=== PATIENT | female | born 1975 | race Caucasian/White ===

== ENCOUNTER 2018-09-02 13:01 | Emergency (ER) | payer OTHER ==
[~2018-09-02] VITALS: Ht 162.6 cm; Wt 54.9 kg
[~2018-09-02 13:01] MED LIST: ABILIFY 2 MG2 M1 PO; AMBIEN 5 MG TABL5 M1 PO; AMBIEN CR12.5 MG PO; ATIVAN1 MG PO; BUTALB-APAP-CA1 EACH PO; COENZYME Q1060 MG PO; CYPROHEPTADINE 44 MG PO; DESYREL100 MG PO; DILAUDID1 MG/1 ML IVPUSH; ENOXAPARIN40 MG/0.1 SUBQ; ERYTHROMYCIN250 M1 PO; ERYTHROMYCIN250 MG PO; FIORICET 50-321 EACH PO; HOME MEDICATION PO; HYDROCHLOROTHIA25 M1 PO; HYDROXYZINE HCL25 M1 PO; HYDROXYZINE PAM50 MG PO; IBUPROFEN 200200 M1 PO; IBUPROFEN 600600 M1 PO; KEFLEX500 MG PO; KEPPRA 500 MG500 M1 IV; LAMICTAL XR100 MG PO; LAMICTAL100 MG PO; LUNESTA3 MG PO; LYRICA200 MG PO; MIRTAZAPINE45 MG PO; NEURONTIN 400400 M1 PO; NEURONTIN600 MG PO; ONDANSETRON HCL4 M2 PO; POTASSIUM20 PO; PRENATAL PO; PROPRANOLOL 1010 M1 PO; PROTONIX40 M1 PO; PROTONIX40 M2 PO; RESTORIL30 MG PO; SUMATRIPTAN SUC50 MG PO; TOPAMAX 100 MG100 MG PO; TOPAMAX100 MG PO; TOPAMAX50 MG PO; TOPROL XL25 MG PO; TRANSDERM-SCO1 PATC1 TD; TREXIMET 10-601 EACH PO; TYLENOL325 MG PO; VITAMIN B-1100 M1 PO; VITAMIN B-1100 MG PO; XANAX XR1 MG PO; ZANAFLEX4 M1 PO; ZANTAC150 M2 PO; ZEMBRACE S3 MG/0.5 M SQ; ZOFRAN ODT4 MG PO; ZOFRAN4 MG PO; ZOLOFT100 MG PO; ZYPREXA 10 MG T10 MG PO; [UNRECOGNIZED DRUG - OTHER] PO; [UNRECOGNIZED DRUG - OTHER] PO
[2018-09-02 14:53] LABS: HEMATOCRIT 37.2 % (37.0-47.0); HEMOGLOBIN 11.7 gm/dL (12.0-15.0); MCHC 31.6 g/dL (28.0-37.0); MCV 79.2 fL (80.0-100.0); MPV 7.8 fl. (7.2-11.1); NUCLEATED RBCS 0 /100WBC; PLATELET COUNT* 360 thou/uL (150-400); RDW-CV 19.7 % (10.5-14.5); WBC 10.1 thou/uL (4.0-11.0)
[2018-09-02 15:01] LABS: ANION GAP 11 mmol/L (7-16); BUN 8 mg/dL (7-18); CALCIUM 7.8 mg/dL (8.5-10.1); CHLORIDE 102 mmol/L (98-107); CO2 27 mmol/L (21-32); CREATININE 0.7 mg/dL (0.6-1.3); GLUCOSE 146 mg/dL (70-99); POTASSIUM 3.8 mmol/L (3.5-5.1); SODIUM 140 mmol/L (136-145)
[2018-09-02 15:11] LABS: ALBUMIN 3.5 g/dL (3.4-5.0); ALKALINE PHOSPHATASE 91 U/L (46-116); LIPASE 52 U/L (73-393); SGOT 25 U/L (15-37); SGPT 31 U/L (30-65); TOTAL BILIRUBIN 0.2 mg/dL (<0.1-1.0); TOTAL PROTEIN 7.1 g/dL (6.4-8.2); TROPONIN-I LEVEL <0.06 ng/mL (<0.06)
[2018-09-02 15:27] LABS: ABSOLUTE LYMPHOCYTES 0.9 thou/uL (0.8-5.3); ABSOLUTE MONOCYTES 0.3 thou/uL (0.0-1.2); ABSOLUTE NEUTROPHILS 8.9 thou/uL (1.6-8.1)
[2018-09-02 15:28] LABS: ANISOCYTOSIS 1+; PLATELET ESTIMATE ADEQUATE
[2018-09-02 15:29] LABS: MICROCYTES Occasional
[2018-09-02 15:54] LABS: URINE BILIRUBIN NEGATIVE (Negative); URINE BLOOD NEGATIVE (Negative); URINE CLARITY CLEAR; URINE COLOR YELLOW; URINE GLUCOSE-RANDOM NEGATIVE (Negative); URINE KETONES NEGATIVE (Negative); URINE LEUKOCYTES-REFLEX NEGATIVE (Negative); URINE NITRITE-REFLEX NEGATIVE (Negative); URINE PROTEIN 1+ (Negative); URINE SPECIFIC GRAVITY >= 1.030 (1.005-1.030); URINE UROBILINOGEN 0.2 E.U./dl (0.2-1.0)
[2018-09-02 16:05] LABS: AMP/METHAMP Negative (Negative); BARBITURATES Negative (Negative); BENZODIAZEPINES Negative (Negative); COCAINE Negative (Negative); METHADONE Negative (Negative); OPIATES Negative (Negative); PCP Negative (Negative); THC POSITIVE (Negative)
[2018-09-02] MEDS ORDERED: OMEPRAZOLE40 MG PO (17:12)
[2018-09-02] MEDS ORDERED: ONDANSETRON HCL4 M2 PO (17:12)
[2018-09-02] MEDS ORDERED: CARAFATE1 GM/10 ML PO (17:12)
[2018-09-02 17:39] VITALS: BP 164/96
--- NOTE | 2018-09-03 16:07 | EKG ---
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1975 Requested By: Mary Rosales Order Number: [id number] MD: Terry Leal Measurements Intervals [place] Rate: 77 P: -13 OK: 115 QRS: 52 QRSD: 72 T: 37 QT: 393 QTc: 445 Interpretive Statements Sinus rhythm Atrial premature complex Borderline short OK interval Compared to ECG 11/22/2016 13:41:27 Atrial premature complex(es) now present Electronically Signed On 09-03-2018 16:07:28 CDT by Terry Leal [email or web address] <ELECTRONICALLY SIGNED> By: Terry Leal MD, [facility] 09/03/18 1607 1528 1528 Terry Leal MD, FACC /EPI
== END 2018-09-02 17:42 | disposition home or self-care (01) ==
LOC: M.ERS 13:01
PROVIDERS: Nurse Practitioner Family
DX: K29.70 Gastritis, unspecified, without bleeding (principal); R51 Headache; G89.29 Other chronic pain; F32.9 Major depressive disorder, single episode, unspecified; G40.909 Epilepsy, unspecified, not intractable, without status epilepticus; K21.9 Gastro-esophageal reflux disease without esophagitis; Z90.49 Acquired absence of other specified parts of digestive tract; Z90.89 Acquired absence of other organs; Z98.51 Tubal ligation status; Z90.710 Acquired absence of both cervix and uterus; Z79.899 Other long term (current) drug therapy; Z88.8 Allergy status to other drugs, medicaments and biological substances; Z91.018 Allergy to other foods; Z91.040 Latex allergy status; Z88.6 Allergy status to analgesic agent

== ENCOUNTER 2018-09-25 17:51 | Inpatient (IN) | payer OTHER, MEDICARE ==
[~2018-09-25] VITALS: Ht 165.1 cm; Wt 62.1 kg
[2018-09-25] VITALS (7 sets, daily range): BP systolic 116–165; BP diastolic 69–101
--- NOTE | ~2018-09-25 | CON ---
[address] [address] CONSULTATION Name: PATRICE GONZÁLES Room: [address] IN [facility].#: [id number] Admission: 09/25/18 Attend Phys: Juliana Luu Discharge: Date of : 71 Report #: [id number] THIS REPORT FOR: //name// CC: FAM unknown Herbert Celeste HISTORY OF PRESENT ILLNESS: The patient is a 43-year-old woman who was admitted from the Emergency Department on 09/25/2018, after an apparent suicide attempt. The patient is under the care of Dr. Lee, a psychiatrist at [facility] and had received ECT treatments the previous week. The patient stated that she was told by her that he filed for divorce and she became distraught and took Topamax, Lamictal and gabapentin medications in a suicide gesture. The patient is under the care of Dr. Glass for seizure disorder. Prior to that, she had been under the care of Dr. Moon. Her seizures began in 2007 and were resistant to medications. The patient had a vagal nerve stimulator placed in 10/2016. She had been evaluated at [facility] by Dr. Hernandes, records are not available; however, the patient was very unhappy with Dr. Hernandes and the impression was that he did not feel that her seizures were organic. The patient was admitted. She was treated for hypokalemia. Serotonin syndrome was ruled out. The patient has been seen by Psychiatry and it is recommended that she have psych admission. EEG is ordered. PAST MEDICAL AND SURGICAL HISTORY: Positive for history of alcohol abuse, abdominal surgery for ulcers, thoracotomy after pneumonia, gallbladder surgery, appendectomy, jaw surgery, breast augmentation and overdose in 2006 as well as a vagal nerve stimulator. MEDICATIONS: Include topiramate 100 mg b.i.d., lamotrigine 100 mg b.i.d., lorazepam 1 mg p.r.n., zolpidem 12.5 mg at bedtime and sumatriptan for headaches. She is also on sertraline, which was discontinued. FAMILY HISTORY: Positive for alcoholism and drug addiction SOCIAL HISTORY: The patient does not use tobacco but does drink beer. REVIEW OF SYSTEMS: The patient on review of systems is complaining of headaches. She is very depressed and frequently cries during the interview. NEUROLOGIC EXAMINATION: Neck is supple. The patient is alert and oriented with normal memory and speech. She did have a spell, which she repeated the same word 10 or 12 times while she was crying. At other times, she did have a to and [place] [address] CONSULTATION Name: PATRICE GONZÁLES Room: [address] [place] ..#: [id number] Admission: 09/25/18 Attend Phys: Juliana Luu Discharge: Date of : 71 Report #: [id number] On cranial nerve testing, the pupils were dilated but constricted vigorously to light. The patient had an unusual response to eye movement testing. She moved her eyes to the right when I moved to her right and moved her eyes to the left when I walked around the bed to her left side, but would not voluntarily move the eyes and following my finger. Likewise, vertical gaze was affected, but increased with encouragement. She did converge well. Facial sensation and mobility normal. Tongue normal. Motor testing revealed full power in her arms and legs. There was no drift. Sensory testing was intact to pin and vibration. Coordination testing was done well with [id number]. Her reflexes were diminished throughout, but equal. The toes were downgoing. Gait was not tested. IMAGING: A CT scan of the head was normal. The patient does have a vagal nerve stimulator. She could have an MRI scan if the device was turned off, but I do not feel need for an MRI at this time. 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 The observed activity that had been noted by Nursing was that when she had a seizure, her eyes were open which would be accounted for by seizure, but ___ her right arm would move but there was no tonic or clonic activity and the head had a tremor of the head. The EEG is pending. If positive for epileptiform discharges that would certainly indicate that she has an organic seizure disorder, but she may very well be having pseudoseizures as well. By: 1125 [id number] Peña MD /rubin
[~2018-09-25 17:51] MED LIST changes: +CARAFATE1 GM/10 ML PO; +OMEPRAZOLE40 MG PO
[2018-09-25 18:12] LABS: HEMOGLOBIN 12.8 gm/dL (12.0-15.0); MCH 26.5 pg (26.0-34.0); MCHC 31.3 g/dL (28.0-37.0); MCV 84.8 fL (80.0-100.0); RBC 4.84 mil/uL (4.20-5.00); RDW-CV 21.3 % (10.5-14.5); WBC 7.3 thou/uL (4.0-11.0)
[2018-09-25 18:22] LABS: URINE BILIRUBIN NEGATIVE (Negative); URINE BLOOD NEGATIVE (Negative); URINE CLARITY CLEAR; URINE COLOR YELLOW; URINE GLUCOSE-RANDOM NEGATIVE (Negative); URINE KETONES NEGATIVE (Negative); URINE LEUKOCYTES NEGATIVE (Negative); URINE NITRITE NEGATIVE (Negative); URINE PROTEIN NEGATIVE (Negative); URINE UROBILINOGEN 0.2 E.U./dl (0.2-1.0)
[2018-09-25 18:23] LABS: CALCIUM 9.4 mg/dL (8.5-10.1); CREATININE 1.1 mg/dL (0.6-1.3); POTASSIUM 3.7 mmol/L (3.5-5.1)
[2018-09-25 18:28] LABS: ALBUMIN 4.4 g/dL (3.4-5.0); TOTAL BILIRUBIN 0.6 mg/dL (<0.1-1.0); TOTAL PROTEIN 8.8 g/dL (6.4-8.2)
[2018-09-25 18:31] LABS: SALICYLATE < 2.8 mg/dL (2.8-20.0)
[2018-09-25 18:32] LABS: ACETAMINOPHEN < 2 ug/mL (10-30); ALCOHOL < 10 mg/dL (<10)
[2018-09-25 18:36] LABS: AMP/METHAMP Negative (Negative); BARBITURATES Negative (Negative); BENZODIAZEPINES Negative (Negative); COCAINE Negative (Negative); METHADONE Negative (Negative); OPIATES Negative (Negative); PCP Negative (Negative); THC Negative (Negative)
[2018-09-25 19:37] LABS: BE -6.4 mmol/L (-2 to +3); PCO2 30.2 mmHg (35.0-45.0); PO2 100.5 mmHg (75.0-100.0); pH 7.383 (7.340-7.450)
--- NOTE | 2018-09-25 21:56 | NUR ---
PATIENT TO ICU ROOM 3 ACCOMPANIED BY RN AND SITTER AT 2135. PATIENT AROUSABLE, BUT VERY LETHARGIC. WAS ABLE TO TELL ME SHE IS IN [place] AND IS HERE BECAUSE SHE TRIED TO COMMIT SUICIDE. REPETITION OF WORDS/PHRASES AND FLIGHT OF IDEAS NOTED WHEN ANSWERING THOSE QUESTIONS. IS PLEASANT, SAYS SORRY AND THANK YOU. SOME TREMORS NOTED TO UPPER EXTREMITY. PUPILS 5-6 AND SLUGGISH. AFEBRILE. NSR ON THE MONITOR, 95% ON RA. BP SLIGHTLY ELEVATED BUT TRENDING DOWN SINCE ARRIVAL. WILL CONTINUE TO MONITOR. PATIENT IS A POOR HISTORIAN DUE TO CLINICAL CONDITION.
[2018-09-26] VITALS (40 sets, daily range): BP systolic 103–183; BP diastolic 60–111
--- NOTE | 2018-09-26 05:44 | NUR ---
PATIENT MORE AROUSABLE THIS AM, ZOFRAN AND ATIVAN X1 FOR COMFORT. ABLE TO RESPOND TO SOME QUESTIONS, BUT IS STILL LETHARGIC AND REPEATS ANSWERS. INCREASED SPUTUM, FROTHY AND WHITE. VITALS STABLE, AFEBRILE. 1800 CC UOP, YELLOW. NO BM. PT MOANS AND GROANS WHEN AWAKE, BUT NOT CRYING ANYMORE. ASKED IF SHE COULD CALL MOTHER BUT COULD NOT REMEMBER PHONE NUMBER. REASSURANCE PROVIDED. SITTER AT BEDSIDE, FREQUNT TURNS FOR COMFORT. PATIENT PLACED IN SEIZURE PRECAUTIONS.
[2018-09-26 08:51] LABS: AMP/METHAMP Negative (Negative); BARBITURATES Negative (Negative); BENZODIAZEPINES Negative (Negative); COCAINE Negative (Negative); METHADONE Negative (Negative); OPIATES Negative (Negative); PCP Negative (Negative); THC Negative (Negative)
--- NOTE | 2018-09-26 09:26 | EKG ---
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1975 Requested By: Sharmila Lambert Order Number: [id number] MD: Dino Myrick Measurements Intervals [place] Rate: 111 P: 17 [place]: 109 QRS: 27 QRSD: 88 T: 37 QT: 319 QTc: 434 Interpretive Statements Sinus tachycardia Probable left atrial enlargement Nonspecific T abnrm, anterolateral leads Baseline wander in lead(s) V3 Compared to ECG 09/02/2018 15:28:01 Sinus rhythm no longer present Atrial premature complex(es) no longer present Electronically Signed On 09-26-2018 9:26:14 CDT by Dino Myrick [email or web address] <ELECTRONICALLY SIGNED> By: Dino Myrick MD, FACC 09/26/18 0926 175 175 Dino Myrick MD, FAC /EPI
--- NOTE | 2018-09-26 11:21 | NUR ---
ICU rounds: Nurse/sitter in room at bedside. Pt is an OD and unresponsive. Pt is not intubated. No family in room. CM to continue to follow
--- NOTE | 2018-09-26 13:37 | NUR ---
ASSUMED CARE OF PT AROUND 0700 THIS AM. REFER TO ASSESSMENT. PT NOT RESPONSIVE AT TIME OF ASSESSMENT. MINIMAL RESPONSE TO PAIN. OBSERVED PT CHOKING ON THICK WHITE SPUTUM. NASALPHARANGEAL AIRWAY PLACED. PHYSICIAN AT BEDSIDE. ATTEMPTED TWO DOSES OF ROMAZICON WITH MINIMAL RESPONSE. DISCUSSED POSSIBILITY OF SEROTONIN SYNDROME AND PLAN OF CARE TO TREAT WITH PRN ATIVAN AND IV FLUIDS. DISCUSSED PLAN OF CARE WITH POISON CONTROL WELL. PT'S CALLED LATER THIS AFTERNOON. HE STATES HE DOES NOT WANT TO COME SEE HER IN THE HOSPITAL. HE WANTS A DIVORCE. HE STATES HE RECENTLY HAD SURGERY TO HIS BACK AND PT FOUND HIS PAIN PILLS AND TOOK HALF A BOTTLE OVER LAST WEEKEND. STATES 'THIS IS WHAT SHE DOES ALL THE TIME'. THIS NURSE ASKED WHY PT HAS PORTACATH IV ACCESS AND STATES SHE COMPLETES ELECTROCONVULSIVE THERAPY AT [facility] AND THEY PLACED PORTACATH FOR ANESTHESIA ADMINISTRATION. NO OTHER CONCERNS AT THIS TIME. CLWR. WCTM.
--- NOTE | 2018-09-26 18:57 | NUR ---
NO CHANGE IN PATIENT'S STATUS THIS SHIFT. NEUROLOGICAL ASSESSMENT UNCHANGED. IV FLUIDS AT 100ML/HR. SEIZURE PRECAUTIONS IN PLACE.
[2018-09-27] VITALS (30 sets, daily range): BP systolic 94–144; BP diastolic 56–90
[2018-09-27 04:19] LABS: ABSOLUTE LYMPHOCYTES 0.6 thou/uL (0.8-5.3); ABSOLUTE MONOCYTES 0.3 thou/uL (0.0-1.2); ABSOLUTE NEUTROPHILS 3.5 thou/uL (1.6-8.1); BASOPHILS 0.3 %; EOSINOPHILS 0.4 %; HEMATOCRIT 30.6 % (37.0-47.0); LYMPHOCYTES 13.8 %; MCH 27.1 pg (26.0-34.0); MCHC 31.5 g/dL (28.0-37.0); MCV 86.1 fL (80.0-100.0); MPV 8.4 fl. (7.2-11.1); NUCLEATED RBCS 0 /100WBC; POLYS 78.5 %; RBC 3.56 mil/uL (4.20-5.00); WBC 4.4 thou/uL (4.0-11.0)
[2018-09-27 04:31] LABS: HEMOGLOBIN 9.6 gm/dL (12.0-15.0); PLATELET COUNT* 262 thou/uL (150-400)
--- NOTE | 2018-09-27 04:40 | NUR ---
PT. SOMEWHAT PROGRESSING TOWARDS GOALS. BECOMING MORE ALERT THROUGHOUT SHIFT, BUT UNABLE TO ANSWER ANY ORIENTATION QUESTIONS. ATIVAN GIVEN PER PRN ORDER DUE TO RESTLESSNESS/PULLING ON BARRIOS CATHETER. IT APPEARS THAT PT. IS POSTURING AT TIMES, UNSURE IF PT. IS SEIZING. PT. REMAINS NPO. IVF INFUSING. SITTER HAS REMAINED AT BEDSIDE THROUGHOUT SHIFT, SAFETY MAINTAINED. NASAL TRUMPET DC'D. REMAINS ON 2L N/C. PT. DID VOMIT SMALL AMOUNT OF EMESIS, ZOFRAN GIVEN PER PRN ORDER. SITTER AT BEDSIDE, WILL CONTINUE TO MONITOR.
[2018-09-27 04:46] LABS: CALCIUM 7.7 mg/dL (8.5-10.1); CREATININE 0.5 mg/dL (0.6-1.3)
[2018-09-27 05:07] LABS: POTASSIUM 2.9 mmol/L (3.5-5.1)
[2018-09-27 06:35] LABS: PLATELET ESTIMATE ADEQUATE
[2018-09-27 06:36] LABS: ANISOCYTOSIS 1+; POIKILOCYTOSIS 1+
--- NOTE | 2018-09-27 08:41 | NUR ---
RECEIVED REPORT AND ASSUMED CARE OF PT @ 0700.PT IS ALERT TO SELF,VSS,TRACING SR ON THE MONITOR.PT REMAINS ON 2L O2 NC.BARRIOS SECURE AND PATENT.SEZIURE PRECAUTIONS IN PLACE.SITTER MAINTAINED FOR SI. RIGHT CHEST CATH PATENT WITH IVF INFUSING PER ORDERS.RIGHT FOREARM PATENT AND SALINE LOCKED. PT LEFT RESTING IN BED WITH CALL LIGHT AND FALL PRECAUTIONS IN PLACE.WILL CONTINUE TO MONITOR.
--- NOTE | 2018-09-27 10:55 | NUR ---
INT ROUNDS: CONTINUE TO FOLLOW. PT SEDATED, NO FAMILY IN ROOM. REMAINS ON 1;1
--- NOTE | 2018-09-27 17:51 | NUR ---
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
[2018-09-28] VITALS (13 sets, daily range): BP systolic 107–151; BP diastolic 60–94
--- NOTE | 2018-09-28 08:02 | NUR ---
PT SLEPT ENTIRE SHIFT, AROUSABLE TO TOUCH AND NAME. VSS. CIWA 0. 1:1 SITTER AT BEDSIDE AT ALL TIMES. PT DENIES PAIN AND SOA. CALL LIGHT WITHIN REACH.
[2018-09-28 10:31] LABS: ABSOLUTE EOSINOPHILS 0.1 thou/uL (0.0-0.7); ABSOLUTE LYMPHOCYTES 0.9 thou/uL (0.8-5.3); ABSOLUTE MONOCYTES 0.3 thou/uL (0.0-1.2); ABSOLUTE NEUTROPHILS 3.7 thou/uL (1.6-8.1); NUCLEATED RBCS 0 /100WBC
[2018-09-28 10:33] LABS: BASOPHILS 0.4 %; EOSINOPHILS 1.3 %; HEMATOCRIT 31.6 % (37.0-47.0); HEMOGLOBIN 9.8 gm/dL (12.0-15.0); LYMPHOCYTES 17.4 %; MCH 26.8 pg (26.0-34.0); MCHC 31.1 g/dL (28.0-37.0); MONOCYTES 6.7 %; MPV 7.9 fl. (7.2-11.1); PLATELET COUNT* 268 thou/uL (150-400); POLYS 74.2 %; RBC 3.67 mil/uL (4.20-5.00); RDW-CV 21.2 % (10.5-14.5)
[2018-09-28 11:07] LABS: PLATELET ESTIMATE ADEQUATE
[2018-09-28 11:08] LABS: ALBUMIN 2.9 g/dL (3.4-5.0); ANISOCYTOSIS 2+; CALCIUM 7.7 mg/dL (8.5-10.1); CREATININE 0.6 mg/dL (0.6-1.3); MAGNESIUM 2.3 mg/dL (1.8-2.4); POTASSIUM 3.1 mmol/L (3.5-5.1); TOTAL BILIRUBIN 0.2 mg/dL (<0.1-1.0); TOTAL PROTEIN 5.7 g/dL (6.4-8.2)
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
--- NOTE | 2018-09-28 12:33 | NUR ---
PATIENT MED SURGE STATUS RMAINS ALERT TAKING PO CO SOME NAUSEA. POISON CONTROL CALLED TO CLOSE CASE. TELEPSYCH CONSULT COMPLETED AWAITING RESULTS.
--- NOTE | 2018-09-28 18:54 | NUR ---
PATIENT HAD 5 MINUTES OF SEIZURE LIKE ACTIVITY. REMAINS NAUSEATED VITAL SIGNS WNL. SLEEPING AT THIS TIME. GAVE ATIVAN RESTARTED ANTISEIZURE MEDS PER DR GARCIA.
--- NOTE | 2018-09-28 21:31 | NUR ---
2120 PATIENT HAD SEIZURE. RR 45, HR 106, O2 97%, BP 149/94. ADMINISTERED ATIVAN 1 MG. PATIENT STOPPED SEIZING AT 2124. WILL CONITNUE TO MONITOR.
--- NOTE | 2018-09-28 23:29 | NUR ---
PATIENT SEIZED 2 MORE TIMES AT [address] GARCIA CALLED AND RECEIVED ORDERS. PATEINT IS NOW ON ATIVAN GTT AT 4 MG/HR. WILL TITRATE PRN SEIZURE ACTIVITY. PATIENT HAS BEEN RESTING COMFORTABLY FOR THE PAST HOUR WITH NO SIEZURES. WILL [facility].
[2018-09-29] VITALS (14 sets, daily range): BP systolic 99–137; BP diastolic 62–91
[2018-09-29 05:19] LABS: HEMATOCRIT 30.2 % (37.0-47.0); HEMOGLOBIN 9.6 gm/dL (12.0-15.0); MCH 27.1 pg (26.0-34.0); MCHC 31.7 g/dL (28.0-37.0); MCV 85.4 fL (80.0-100.0); MPV 7.6 fl. (7.2-11.1); RBC 3.54 mil/uL (4.20-5.00); RDW-CV 21.9 % (10.5-14.5); WBC 3.8 thou/uL (4.0-11.0)
[2018-09-29 05:26] LABS: CALCIUM 8.1 mg/dL (8.5-10.1); CREATININE 0.6 mg/dL (0.6-1.3); PHOSPHORUS* 2.5 mg/dL (2.5-4.9)
[2018-09-29 05:36] LABS: GLYCOHEMOGLOBIN (HGB A1C) 5.4 % (4.8-5.6)
[2018-09-29 05:38] LABS: POTASSIUM 2.9 mmol/L (3.5-5.1)
--- NOTE | 2018-09-29 06:24 | NUR ---
ASSESSMENTS CHARTED. PATIENT MAKING SUBTLE SUICIDAL REMARKS DURING SHIFT. PATIENT STATES " HE () WILL BE BETTER OFF WHEN I'M NOT AROUND" AND "MAYBE THINGS WILL BE BETTER WHEN I'M NOT HERE". MOOD AND AFFECT LABILE. 1:1 OBSERVATION STILL IN EFFECT. SAFETY MAINATAINED. PATIENT BEGAN EXPERIENCING SEIZURES DURING SHIFT. PATIENT EXPERIENCED A TOTAL OF 7 SEIZURES BETWEEN [address] GARCIA CONTACTED AND ORDERS RECEIVED FOR ATIVAN PUSHES AND ATIVAN GTT. ATIVAN GTT CURRENTLY RUNNING AT 2 MG/HR. PATIENT FREE FROM SEIZURE ACTIVITY SINCE 99. PATIENT POST ICTAL STILL. VSS AT THIS TIME. HELD PO DOSES OF GABAPENTIN AT 0000 AND 0600 CONCERNING PATIENT'S ABILITY TO SWALLOW POST SEIZURE.
--- NOTE | 2018-09-29 10:28 | NUR ---
PT WITH OBSERVED SEIZURE LIKE ACTIVITY THIS AM. PT TURNED TO HER L SIDE IN HER BED. DR LEVI NOTIFIED AFTER ACTIVITY WAS OVER. SITTER AT BEDSIDE FOR PT SAFETY R/T SUICIDE ATTEMPT.
--- NOTE | 2018-09-29 13:59 | NUR ---
PT WITH SEIZURE LIKE ACTIVITY. LORAZEPAM IVP GIVEN. SEIZURE ACTIVITY STOPPED WITH IN SECONDS. PT PLACED ON HER RIGHT SIDE DURING SEIZURE ACTIVITY. PT NOW POSTICTAL.
--- NOTE | 2018-09-29 14:41 | NUR ---
PT WITH SEIZURE LIKE ACTIVITY. PLACED ON R SIDE DURING SEIZURE. IVP LORAZEPAM GIVEN WITH QUICK RESULTS. PT POSTICTAL. DR LEVI NOTIFIED.
--- NOTE | 2018-09-29 18:52 | NUR ---
PT HAS HAD NUMOROUS SEIZURE ACTIVITY EPISODES TODAY. PRN LORAZEPAM GIVEN EACH TIME WITH RAPID RESULT. DR LEVI AWARE. REMAINS WITH 1:1 SITTER FOR PT SAFETY R/T SA.
[2018-09-30 00:01] VITALS: BP 132/93
[2018-09-30 02:00] VITALS: BP 124/80
--- NOTE | 2018-09-30 02:37 | NUR ---
PT. C/O CHEST PAIN. EKG OBTAINED, NORMAL SINUS RHYTHM. REASSURANCE PROVIDED.
[2018-09-30 06:49] LABS: ABSOLUTE EOSINOPHILS 0.1 thou/uL (0.0-0.7); ABSOLUTE LYMPHOCYTES 1.4 thou/uL (0.8-5.3); ABSOLUTE MONOCYTES 0.4 thou/uL (0.0-1.2); ABSOLUTE NEUTROPHILS 2.5 thou/uL (1.6-8.1); BASOPHILS 0.8 %; EOSINOPHILS 1.8 %; HEMATOCRIT 34.8 % (37.0-47.0); HEMOGLOBIN 10.9 gm/dL (12.0-15.0); LYMPHOCYTES 32.1 %; MCH 26.8 pg (26.0-34.0); MCHC 31.3 g/dL (28.0-37.0); MCV 85.6 fL (80.0-100.0); MONOCYTES 9.2 %; MPV 7.9 fl. (7.2-11.1); NUCLEATED RBCS 0 /100WBC; PLATELET COUNT* 332 thou/uL (150-400); POLYS 56.1 %; RBC 4.06 mil/uL (4.20-5.00); RDW-CV 21.8 % (10.5-14.5); WBC 4.5 thou/uL (4.0-11.0)
[2018-09-30 07:03] LABS: CALCIUM 8.6 mg/dL (8.5-10.1); CREATININE 0.6 mg/dL (0.6-1.3)
[2018-09-30 07:19] VITALS: BP 122/78
[2018-09-30 07:31] LABS: ANISOCYTOSIS 1+; PLATELET ESTIMATE ADEQUATE
--- NOTE | 2018-09-30 07:46 | NUR ---
RECEIVED REPORT AND ASSUMED CARE OF PT @ 0700.PT IS A/O X4,VSS,MED-SURG STATUS.PT REMAINS ON ROOM AIR.PORT A CATH PATENT AND SALINE LOCKED.RIGHT FOREARM PATENT AND SALINE LOCKED.SEIZURE PRECAUTIONS IN PLACE.SI PRECAUTIONS IN PLACE.SITTER MAINTAINED.PT IS CALM AND COOPERATIVE WITH C/O HEADACHE.MEDICATIONS GIVEN.CALL LIGHT AND FALL PRECAUTIONS IN PLACEWILL CONTINUE TO MONITOR.
[2018-09-30] MEDS ORDERED: ABILIFY 2 MG2 M1 PO (09:20)
[2018-09-30] MEDS ORDERED: SERTRALINE HCL50 MG PO (09:20)
[2018-09-30] MEDS ORDERED: AMBIEN CR12.5 MG PO (09:21)
[2018-09-30] MEDS ORDERED: KLOR-CON M2020 MEQ PO (09:21)
[2018-09-30] MEDS ORDERED: PROTONIX40 M2 PO (09:22)
[2018-09-30] MEDS ORDERED: VITAMIN D2000 UNIT PO (09:22)
[2018-09-30] MEDS ORDERED: IRON325 PO (09:24)
[2018-09-30] MEDS ORDERED: VITAMIN B-1100 M1 PO (09:24)
[2018-09-30] MEDS ORDERED: THERA M PLUS T1 EAC2 PO (09:24)
--- NOTE | 2018-09-30 09:46 | NUR ---
PT HAS HAD TWO EPISODES OF SEZIURE LIKE ACTIVITY THIS AM THAT RESOLVED AFTER SALINE FLUSH GIVEN.WILL CONTINUE TO MONITOR.SITTER AT BEDSIDE.
--- NOTE | 2018-09-30 11:44 | NUR ---
ICU rounds: Pt to have EEG today, if negative, Pt will be medically stable to dc to inpt rehab. CM following
--- NOTE | 2018-09-30 14:52 | NUR ---
DR SCHMITT CALLED AND SAID EEG IS NEGATIVE, NO SEIZURE ACTIVITY, MEDICALLY STABLE FROM A NEURO STANDPOINT
[2018-09-30 15:53] VITALS: BP 124/81
--- NOTE | 2018-09-30 17:12 | EKG ---
[place] [address] ELECTROCARDIOGRAM REPORT Name: PATRICE GONZÁLES Room: [address] ADM IN M.R.#: [id number] Admission: 09/25/18 Attend Phys: Juliana Luu Discharge: Date of : 71 Report #: [id number] THIS REPORT FOR: //name// 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
--- NOTE | 2018-09-30 17:16 | EKG ---
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
--- NOTE | 2018-09-30 17:38 | NUR ---
VSS.MED-SURG STATUS.PT REMAINS ON ROOM AIR.PAIN MANAGED WELL WITH PO MEDICATIONS.PORT A CATH PATENT AND SALINE LOCKED.IV RIGHT FOREARM PATENT AND SALINE LOCKED.EEG COMPLETED TODAY.SEIZURE PRECAUTIONS IN PLACE.SI PRECAUTIONS IN PLACE WITH SITTER MAINTAINED.PT PROGRESSING TOWARDS GOALS AND WAITING FOR INPATIENT [facility].PT INFORMED OF PLAN OF CARE AND COMMUNICATES UNDERSTANDING.CALL LIGHT AND FALL PRECAUTIONS IN PLACE.WILL CONTINUE TO MONITOR FOR DURATION OF SHIFT.
[2018-09-30 20:00] VITALS: BP 136/92
--- NOTE | 2018-09-30 21:20 | NUR ---
ASSUMED CARE AT 1900H,PT IS A MED SURG STATUS AND FOR TRANSFER TO IN PATIENT PSYCH FACILITY.ON ROOM AIR AND STATBLE.PT HAD A PSUEDOSEIZURE, SITTER WAS ABLE TO HELP PT NOT TO HIT HER HEAD ON THE FLOOR.BACK TO BED AND PSEUDOSEIZURE GONE AFTER SALINE.ASKED PT IF SHE HAS PAIN AND SHE DENIES ANY PAIN.
[2018-10-01 04:00] VITALS: BP 131/88
--- NOTE | 2018-10-01 05:23 | NUR ---
2 MORE EPISODE OF PSEUDOSIEZURE. PT COMPLAIN OF REDNESS ON HER SKIN DUE TO ELECTRODES,NO REDNESS SEEN, ELECTRODES REMOVED.PT VERBALIZED, SHE HAVE EPELEPSY.CONTINUE MONITORING AND STILL FOR TRANSFER TO INPATIENT PSYCH FACILITY.
--- NOTE | 2018-10-01 07:34 | NUR ---
CM received a call last evening, [facility] is unable to accept Pt, they cannot meet her needs.
[2018-10-01 08:51] VITALS: BP 128/85
--- NOTE | 2018-10-01 10:17 | NUR ---
Pt transferring to room 118. CM faxed referrals to [facility], [facility], and [facility] in [place]. [facility] are both at capacity. [facility] contacted nurse and informed that they are unable to accept Pt d/t Pt being involuntary. CM and nurse spoke with Pt, Pt is in agreement with going to inpt psych, CM updated Mimi at [facility], they are now reviewing the referral. CM f/u with [facility], they were at capacity yesterday, will review after their bed meeting today [facility] p:[phone], f:[phone] [facility] p:[phone] f:[phone] [facility] in [place], [place] p:[phone] f:[phone]
--- NOTE | 2018-10-01 10:23 | NUR ---
PT A/O X'S 4 THIS AM. VSS. AFEBRILE. CASE MANAGEMENT AND THIS RN SPOKE TO PT TOGETHER ABOUT DISCHARGE TO FACILITY. PT AGREEABLE TO GO. PT HAD REQUESTED TO GO TO [facility]. CM DISSCUSSED WITH PT THAT [facility] STATED THEY ARE NOT ABLE TO MEET PT'S NEEDS. AT THIS TIME PT APPEARED TEARFUL. ABOUT 5 MINUTES AFTER THIS CONVERSATION PT BEGAN SHAKING IN BED, MOVING ARMS, LEGS AND HEAD. SALINE FLUSH ADMININSTERED AND WITHIN 1 MINUTE PT RELAXED AND NOT SHAKING IN BED.
--- NOTE | 2018-10-01 15:48 | NUR ---
PT ALERT AND ORIENTED X4. PT TRANSFERRED FROM ICU THIS AM. PT DENIES PAIN. PT HAS SITTER AT BEDSIDE. PT HAS ACCEPTENCE THIS AFTEROON, AWAITING TRANSPORTATION. IV TAKEN OUT. SEE ASSESSMENT AND VITALS FOR OTHER DETAILS. CALL LIGHT WITHIN REACH, WILL CONTINUE PLAN OF CARE
[2018-10-01 15:58] VITALS: BP 128/85
[2018-10-01 16:06] VITALS: BP 135/85
--- NOTE | 2018-10-01 16:16 | NUR ---
PATRICE/YNES CHICAS CALLED AND SAID THEY CAN ACCEPT PT.TO AN INPT.PSYCH BED TODAY ANYTIME AFTER 5PM. ACCEPTING DR.IS . NURSE TO NURSE REPORT CAN BE CALLED TO [phone]. INFORMED ANASTASIA LION. EMTALA FORM AND AMBULANCE FORM COMPLETED. FAXED AMBULANCE FORM [phone]. [facility] WILL CALL FOR AMBULANCE WHEN RN READY. COPY OF EMTALA FORM TO GO WITH PT.,ALONG WITH DISCHARGE SUMMARY. AYAD ASKED THAT CM CALL PT.'S . PT.IS WANTING HIM TO BRING HER CLOTHES AND HER CELL PHONE. CM CALLED JENNY MCGEERACHEL. HE WAS AT WORK. INFORMED HIM OF PT.'S REQUEST. HE SAID HE COULD NOT GET HERE BEFORE PT.LEFT, HE WAS AT WORK. HE SAID HE WILL CALL FACILITY TOMORROW TO SEE WHAT HE CAN BRING HER AND WHAT TIME VISITING HRS ARE. RN WILL TELL PT.
--- NOTE | 2018-10-01 17:34 | NUR ---
PT LEFT WITH EMS AT 1734 WITH ALL BELONINGS. REPORT CALLED TO NURSE RAIN AT [facility]
[2018-10-01 17:39] VITALS: BP 128/85
--- NOTE | 2018-10-03 10:45 | EEG ---
[address] [address] EEG STUDY REPORT Name: PATRICE GONZÁLES Room: [address]#: [id number] Admission: 09/25/18 Attend Phys: Juliana Luu Discharge: 10/01/18 Date of : 71 Report #: [id number] THIS REPORT FOR: //name// CC: FAM unknown Herbert Celeste DATE OF SERVICE: 09/30/2018 This is a 43-year-old female patient who was evaluated for the possibility of seizure. The patient's EEG was done by placing the electrodes by standard 10-20 system of electrode placement. Both referential and sequential montages were used for recording. The patient's background activity is about 9-10 Hz and 30-40 microvolt. It is a symmetrical activity. The patient became drowsy that is associated with bilateral slowing and vertex sharp waves. Photic stimulation was unremarkable. Throughout the record, no active epileptiform activity was noticed. IMPRESSION: This patient's EEG does not demonstrate any active epileptiform activity and was unremarkable. Thank you very much for this referral. <ELECTRONICALLY SIGNED> By: Abdelrahman Russell MD 10/03/18 1045 1439 [id number] Russell MD /nt
--- NOTE | 2018-10-03 10:45 | CON ---
[facility] [address] [place] [address] CONSULTATION Name: PATRICE GONZÁLES Room: [address] IN ..#: [id number] Admission: 09/25/18 Attend Phys: Juliana Luu Discharge: 10/01/18 Date of : 71 Report #: [id number] THIS REPORT FOR: //name// CC: FAM unknown Herbert Celeste DATE OF SERVICE: 09/30/2018 HISTORY OF PRESENT ILLNESS: This is a 43-year-old female patient whom I have seen in the past and the patient usually follows up with Dr. Glass for her neurological care. This is a difficult management problem. At this time, she was admitted with intentional overdose. She has been admitted multiple times in the past with pseudoseizures. The patient has pretty significant psychiatric problem and she follows up with a psychiatrist. Prior to this, she has also seen Dr. Moon and she saw Dr. Hernandes, who is an epileptologist, but the patient did not get along with him. She is on Lamictal, Topamax, and gabapentin. She was given a dose of Keppra, but that has been discontinued. The patient was discussed with Dr. Lakhani, the hospitalist, who is taking care of this patient today. The patient was seen by Dr. Peña and his consult note was reviewed. Her EEG is pending. REVIEW OF SYSTEMS: Positive for multiple problems in this patient, which have been summarized in prior notes. PHYSICAL EXAMINATION: NEUROLOGIC: Indicate she is alert. She is responsive. She can follow simple commands. In fact, she remembers seeing me during the last hospitalization and was able to give the history reasonably well. She moves all 4 extremities. There is really no meningeal sign in this patient. CARDIAC AND RESPIRATORY EXAMINATION: Unremarkable. VITAL SIGNS: Blood pressure is 122/78, temperature is 97.6. RADIOLOGIC DATA: She did have a CT scan of the head and that was unremarkable. She had an extensive workup in the past and her diagnosis has been pseudoseizure. IMPRESSION: This patient most likely has pseudoseizure. I agree with EEG to further exclude the possibility of any epileptic seizure. Until EEG shows active epileptiform activity, I will suggest [place] [address] CONSULTATION Name: ZONIAPATRICE BAEZ Juliana Room: [address]#: [id number] Admission: 09/25/18 Attend Phys: Juliana Luu Discharge: 10/01/18 Date of : 71 Report #: [id number] is on 3 medications, which have antiepileptic effect and I will suggest she follow up with Dr. Glass after she is dismissed. <ELECTRONICALLY SIGNED> By: Abdelrahman Russell MD 10/03/18 [id number] Russell MD /rubin
== END 2018-10-01 17:30 | DRG 917 ==
LOC: M.ERS 17:51 → M.ICU 19:19 → M.TBA-ER 19:19 → M.ICU 21:04 → M.ORTHSURG 10-01 10:50
PROVIDERS: Family Medicine; Internal Medicine; Personal Emergency Response Attendant; ADMIT Internal Medicine
DX: T42.4X2A Poisoning by benzodiazepines, intentional self-harm, initial encounter (principal); G92 Toxic encephalopathy; J96.00 Acute respiratory failure, unspecified whether with hypoxia or hypercapnia; T39.8X2A Poisoning by other nonopioid analgesics and antipyretics, not elsewhere classified, intentional self-harm, initial encounter; T40.692A Poisoning by other narcotics, intentional self-harm, initial encounter; K21.9 Gastro-esophageal reflux disease without esophagitis; F41.9 Anxiety disorder, unspecified; F43.10 Post-traumatic stress disorder, unspecified; E87.6 Hypokalemia; F10.10 Alcohol abuse, uncomplicated; D50.9 Iron deficiency anemia, unspecified; F32.9 Major depressive disorder, single episode, unspecified; G40.909 Epilepsy, unspecified, not intractable, without status epilepticus; Y92.89 Other specified places as the place of occurrence of the external cause; Z90.49 Acquired absence of other specified parts of digestive tract; Z90.710 Acquired absence of both cervix and uterus; Z79.899 Other long term (current) drug therapy; Z91.040 Latex allergy status; Z88.5 Allergy status to narcotic agent; Z88.8 Allergy status to other drugs, medicaments and biological substances; Z91.018 Allergy to other foods